=== PATIENT | male | born 1995 | race Caucasian/White ===

== ENCOUNTER 2017-07-01 15:28 | Emergency (ER) | payer OTHER ==
[~2017-07-01] VITALS: Ht 177.8 cm; Wt 83.9 kg
[2017-07-01 15:44] VITALS: BP 134/77
[2017-07-01] MEDS ORDERED: POLYTRIM EYE DR10 ML OPH (16:10)
--- NOTE | 2017-07-01 16:10 | ED EYE COMPLAINT ---
History of Present Illness General Chief Complaint: Eye Problems Stated Complaint: EYE PAIN Source: patient Exam Limitations: no limitations Vital Signs & Intake/Output Vital Signs & Intake/Output Vital Signs Date Time Temp Pulse Resp B/P B/P Pulse O2 O2 Flow FiO2 Mean Ox Delivery Rate 07/01 1544 98.5 85 18 134/77 97 Room Air Room Air Allergies Coded Allergies: NO KNOWN ALLERGIES (10/17/10) Reconcile Medications Polytrim (Polytrim Eye Drops) 10,000 UNIT-1 MG/ML DROPS 1 GTT OPH Q6 CORNEAL ABRASION Triage Note: TRIAGE: 22 Y/O MALE PRESENTS C/O "PIECE OF METAL IN MY EYE". DENIES PAIN. SMALL SPOT NOTED IN LEFT EYE "YESTERDAY AT WORK, HAMMERING A PIECE OF METAL, AND THEN I FELT SOMETHING IN MY EYE." Triage Nurses Notes Reviewed? yes Onset: Abrupt Duration: day(s): (1) Timing: remote history Injury Environment: home Severity: moderate No Modifying Factors: none HPI: Patient is a 22-year-old male presenting to the emergency department with chief complaint of foreign body sensation in left eye that started abruptly yesterday while he was at work. He reports that he was sanding metal when a piece got into his eye. He was not wearing his safety goggles. Denies any visual changes. He irrigated his eye immediately. Reports that he still noticed irritation in his left eye and noticed something stuck in his left eye. Patient reports he is up-to-date with tetanus immunization. (Lillie Sanderson) Past History Travel History Traveled to [place] past 21 day No Medical History Any Pertinent Medical History? see below for history Neurological: NONE EENT: NONE Cardiovascular: NONE Respiratory: NONE Gastrointestinal: NONE Hepatic: NONE Renal: NONE Musculoskeletal: NONE Psychiatric: NONE Endocrine: NONE Blood Disorders: NONE Cancer(s): NONE CONCESSION WORKER/Reproductive: NONE Surgical History Surgical History: non-contributory Psychosocial History What is your primary language [place]ian Tobacco Use: Never used ETOH Use: occasional use Illicit Drug Use: denies illicit drug use Family History Hx Contributory? No (Lillie Sanderson) Review of Systems Review of Systems Constitutional: Reports: no symptoms. Comments Review of systems: See HPI, All other systems negative. Constitutional, no chills fever or weight loss HEENT: No visual changes no sore throat no congestion Cardiovascular: No chest pain ,palpitation Skin, no jaundice no rashes Respiratory: No dyspnea cough sputum or hemoptysis GI: No nausea no vomiting Muscle skeletal: no back pain, no neck pain, Neurologic: No numbness Immunology: No splenectomy or history of AIDS (Lillie Sanderson) Physical Exam General Appearance: well developed/nourished, no apparent distress, alert, awake , comfortable General Inspection: normal inspection Eyelid: normal inspection Conjunctiva/Sclera: foreign material, injected Cornea: foreign body EOM: intact Pupil: normal accommodation, normal pupil, PERRL Anterior Chamber: normal inspection Eye Left 1) Small, 2 mm foreign body noted. General Inspection: normal inspection Eyelid: normal inspection Conjunctiva/Sclera: normal inspection Cornea: normal inspection EOM: intact Pupil: normal accommodation, normal pupil, PERRL Anterior Chamber: normal inspection Physical Exam Head: atraumatic Comments: Well-developed well-nourished person in no acute distress HEENT: Pupils equally round and reactive to light and accommodation. Nose is atraumatic. 2 mm foreign body noted in the left cornea in the 7 o'clock position. No rust ring noted. Neck: Normal inspection Cardiovascular: Regular rate and rhythms no murmurs rubs or gallops, normal JVP Respiratory: No respiratory distress. Extremity: No edema Neuro: Alert oriented x3 Skin: No appreciable rash on exposed skin, skin is warm and dry. Psych: Mood and affect is normal, memory and judgment is normal. (Lillie Sanderson) Progress Differential Diagnosis: corneal abrasion, corneal foreign body, conjunctivitis Plan of Care: Foreign body was removed with cotton tip swab. Irrigated with saline. Foreign body was removed after tetracaine drops placed. Patient tolerated procedure well. Patient will be started on Polytrim drops. Given ophthalmology to follow up with. (Lillie Sanderson) Departure Departure Time of Disposition: 1608 Disposition: HOME OR SELF CARE Condition: Stable Clinical Impression Primary Impression: Corneal abrasion Qualifiers: Encounter type: initial encounter Laterality: left Qualified Code: S05.02XA - Injury of conjunctiva and corneal abrasion without foreign body, left eye, initial encounter Secondary Impressions: Foreign body in cornea, left eye, initial encounter Referrals: Nette DON,Ayesha (PCP/Family) Aidan DON,Jarvis Patel Additional Instructions: Help with Dr. Bermudez, call tomorrow to make a follow-up appointment. Use Polytrim drops as directed, apply warm compresses to affected area. Take over- the-counter anti-inflammatories to help with any pain. Return for worsening symptoms or concerns. Departure Forms: Customer Survey General Discharge Information Prescriptions: Current Visit Scripts Polytrim (Polytrim Eye Drops) 1 GTT OPH Q6 #10 ML (Lillie Sanderson) PA/FLAT CLOTHIER Co-Sign Statement Statement: ED Attending supervision documentation- [] I saw and evaluated the patient. I have also reviewed all the pertinent lab results and diagnostic results. I agree with the findings and the plan of care as documented in the PA's/FLAT CLOTHIER's documentation. [x] I have reviewed the ED Record and agree with the PA's/FLAT CLOTHIER's documentation. [] Additions or exceptions (if any) to the PAs/FLAT CLOTHIER's note and plan are summarized below: [] (Juventino Langston DO)
== END 2017-07-01 16:14 ==
LOC: ERH 15:28
DX: T15.02XA Foreign body in cornea, left eye, initial encounter (principal); S05.02XA Injury of conjunctiva and corneal abrasion without foreign body, left eye, initial encounter; Y93.9 Activity, unspecified; Y92.9 Unspecified place or not applicable